=== PATIENT | male | born 1970 | race African-American/Black ===

== ENCOUNTER 2019-10-07 13:23 | Outpatient (CLI) | payer BC ==
--- NOTE | 2019-10-07 13:59 | RAD ---
PA AND LATERAL CHEST: History: Dyspnea FINDINGS: The heart size is normal. The lungs are well expanded without focal areas of consolidation, pneumotho races, or pleural effusions. No osseous abnormalities are seen. The aorta is tortuous. IMPRESSION: No radiographic evidence of acute cardiopulmonary process. POS: [facility]
== END 2019-10-07 13:24 | disposition home or self-care (01) ==
LOC: RAD 13:23
PROVIDERS: ATTEND Internal Medicine Pulmonary Disease
DX: R06.00 Dyspnea, unspecified (principal)
CPT/HCPCS: 71046